=== PATIENT | female | born 1950 | race Caucasian/White ===

== ENCOUNTER 2019-02-22 10:47 | Emergency (ER) | payer OTHER, MEDICAID ==
[~2019-02-22] VITALS: Ht 160 cm; Wt 52.6 kg
[2019-02-22 10:50] VITALS: BP_SYST 122
[2019-02-22 13:08] VITALS: BP_SYST 118
== END 2019-02-22 13:08 | disposition home or self-care (01) ==
LOC: SED 10:47
DX: S80.211A Abrasion, right knee, initial encounter (principal); W18.39XA Other fall on same level, initial encounter; Y93.89 Activity, other specified; Y92.89 Other specified places as the place of occurrence of the external cause; Y99.8 Other external cause status
CPT/HCPCS: 73564; 99283